=== PATIENT | female | born 1955 | race Caucasian/White ===

== ENCOUNTER 2018-11-19 14:28 | Inpatient (IN) | payer OTHER ==
[2018-11-19 14:46] VITALS: BMI 22.9
--- NOTE | 2018-11-19 14:51 | PDOC ---
Rapid Medical Evaluation Time Seen by Provider: 11/19/18 14:41 Medical Evaluation: Allergies Allergy/AdvReac Type Severity Reaction Status Date / Time No Known Allergies Allergy Verified 01/07/13 11:19 11/19/18 14:51 Pt c/o: lower abd pain x 3-4 days now with diarrhea, no fever, no GI hx Pt on brief exam: tender to periumbilical area, no distention , vss Pt ordered for: cbc, comp, lactic, ua, ucx, lipase, mag Pt to proceed to the ED Discharge Disposition - Diagnosis Abdominal pain, Hyponatremia, Hypokalemia - Discharge Dispostion Disposition: HOME - Referrals - Patient Instructions - Post Discharge Activity
[2018-11-19] MEDS ORDERED: SODIUM CHLORIDE 1,000 ML IV STA (15:14)
[2018-11-19] MEDS ORDERED: ONDANSETRON 4 MG/2 ML VIAL IVPUSH ONE (15:14)
[2018-11-19] MEDS ORDERED: FAMOTIDINE 20 MG/50 ML IVPB 20 MG/50 ML MG IVPB ONE ×2 (15:14→15:28)
[2018-11-19] MEDS ORDERED: ACETAMINOPHEN 325 MG TABLET (FP) PO ONE (15:15)
--- NOTE | 2018-11-19 15:16 | PDOC ---
History of Present Illness <Marii Singh - Last Filed: 11/19/18 19:58> - General History Source: Patient Exam Limitations: Clinical Condition - History of Present Illness Initial Comments: Jhonny Kenny is a 63 yo F w a hx of HTN, HLD and NIDDM who presents to the [facility] ER from urgent care via private auto for abdominal pain which started yesterday, has been constant, and is associated with nausea and 5 episodes of white vomiting. The patient also endorses mild nunu-umbilical abdominal pain rated 6/10 in intensity and described as sharp in character. The patient also endorses watery loose stools starting this morning. The patient has not tried taking any medications for this pain. She denies recent fevers, chills, or infections. Denies having chest pain, SOB, or difficulty breathing. Denies having a headache, neck pain, or blurry vision. Denies dysuria, frequency, or urgency. PCP: Betty Simon GI: Dr. Gamboa PSH: None reported Social Hx: Denies smoking, drinking, or other substance usage. lives at home and is independent in her ADL Allergies: NKA, NKDA <Gustabo Cummins - Last Filed: 11/19/18 22:11> - General Chief Complaint: Pain Stated Complaint: SENT BY PCP/ABD PAIN Time Seen by Provider: 11/19/18 14:41 Past History <Marii Singh - Last Filed: 11/19/18 19:58> - Past Medical History CVA: No (FAMILY HX) COPD: No Diabetes: Yes (NIDDM) HTN: Yes Hypercholesterolemia: Yes - Suicide/Smoking/Psychosocial Hx Smoking Status: No Smoking History: Never smoked Number of Cigarettes Smoked Daily: 0 <Gustabo Cummins - Last Filed: 11/19/18 22:11> - Past Medical History Allergies/Adverse Reactions: Allergies Allergy/AdvReac Type Severity Reaction Status Date / Time No Known Allergies Allergy Verified 01/07/13 11:19 Home Medications: Ambulatory Orders Amlodipine Besylate [Norvasc -] 5 mg PO DAILY #30 tablet 01/07/13 Losartan/Hydrochlorothiazide [Losartan-Hctz 50-12.5 mg Tab] 1 each PO HS #30 tablet 01/07/13 Simvastatin [Zocor] 40 mg PO HS #30 tablet 01/07/13 Review of Systems - Review of Systems Able to Perform ROS?: Yes Comments:: CONSTITUTIONAL: Absent: fever, no chills, no fatigue EYES: Absent: visual changes ENT: Absent: ear pain, no sore throat CARDIOVASCULAR: Absent: chest pain, no palpitations RESPIRATORY: Absent: cough, no SOB GI: Present: Abdominal pain, nausea, vomiting, diarrhea Absent: no constipation GENITOURINARY: Absent: dysuria, no frequency, no hematuria MUSKULOSKELETAL: Absent: back pain, no arthralgia, no myalgia SKIN: Absent: rash NEURO: Absent: headache <Gustabo Cummins - Last Filed: 11/19/18 22:11> *Physical Exam - Vital Signs Last Vital Signs Temp Pulse Resp BP Pulse Ox 98.4 F 71 20 132/74 97 11/19/18 19:28 11/19/18 19:28 11/19/18 14:43 11/19/18 19:28 11/19/18 19:28 <Marii Singh - Last Filed: 11/19/18 19:58> - Vital Signs Last Vital Signs Temp Pulse Resp BP Pulse Ox 98.5 F 67 20 137/75 98 11/19/18 14:43 11/19/18 14:43 11/19/18 14:43 11/19/18 14:43 11/19/18 14:43 - Physical Exam Comments: GENERAL: Well-appearing, well-nourished. No apparent distress. HEENT: Normocephalic, atraumatic. PERRL, EOM intact. CARDIOVASCULAR: Normal S1, S2. Regular rate and rhythm. PULMONARY: No evidence of respiratory distress. Lungs clear to auscultation bilaterally. No wheezing, rales or rhonchi. ABDOMEN: Mild nunu-umbilical/suprapubic TTP. Abdomen is soft and non-distended. No rebound or guarding. No organomegaly. Normoactive bowel sounds. EXTREMITIES: Normal ROM in all four extremities. No gross deformities. SKIN: Warm, dry. No rash NEUROLOGICAL: No focal neurological deficits. <Gustabo Cummins - Last Filed: 11/19/18 22:11> ED Treatment Course - LABORATORY CBC & Chemistry Diagram: 11/19/18 15:45 11/19/18 15:45 - ADDITIONAL ORDERS Additional order review: Laboratory Results 11/19/18 11/19/1811/19/19 15:45 15:45 15:45 PT with INR 11.80 INR 1.00 Sodium Potassium Chloride Carbon Dioxide Anion Gap BUN Creatinine Est GFR (CKD-EPI)AfAm Est GFR (CKD-EPI)NonAf Random Glucose Lactic Acid Calcium Magnesium Total Bilirubin AST ALT Alkaline Phosphatase Creatine Kinase 107 Troponin I 0.02 Total Protein Albumin Lipase Urine Color Urine Appearance Urine pH Ur Specific [place] Urine Protein Urine Glucose (UA) Urine Ketones Urine Blood Urine Nitrite Urine Bilirubin Urine Urobilinogen Ur Leukocyte Esterase Urine WBC (Auto) Urine RBC (Auto) Urine Casts (Auto) U Epithel Cells (Auto) Urine Bacteria (Auto) Blood Type O POSITIVE Antibody Screen Negative 11/19/18 11/19/18 11/19/18 15:45 15:45 15:45 PT with INR INR Sodium 119 L Potassium 2.6 L* Chloride 79 L Carbon Dioxide 29 Anion Gap 12 BUN 9.9 Creatinine 0.6 Est GFR (CKD-EPI)AfAm 114.02 Est GFR (CKD-EPI)NonAf 98.38 Random Glucose 107 H Lactic Acid 1.6 Calcium 9.6 Magnesium 1.9 Total Bilirubin 1.3 H AST 17 ALT 23 Alkaline Phosphatase 70 Creatine Kinase Troponin I Total Protein 7.0 Albumin 4.3 Lipase 158 Urine Color Yellow Urine Appearance Clear Urine pH 6.0 Ur Specific [place] 1.008 L Urine Protein Negative Urine Glucose (UA) Negative Urine Ketones 1+ H Urine Blood Trace Urine Nitrite Negative Urine Bilirubin Negative Urine Urobilinogen 0.2 Ur Leukocyte Esterase Negative Urine WBC (Auto) 0 Urine RBC (Auto) 1 Urine Casts (Auto) 0 U Epithel Cells (Auto) 0.7 Urine Bacteria (Auto) 6.4 Blood Type Antibody Screen 11/19/18 15:45 RBC 4.58 MCV 82.6 MCHC 36.6 H RDW 12.9 MPV 7.4 L Neutrophils % 67.9 Lymphocytes % 24.9 Monocytes % 5.9 Eosinophils % 0.7 Basophils % 0.6 - RADIOLOGY Radiology Studies Ordered: Category Date Time Status ABDOMEN & PELVIS CT WITH CONTR [CT] Stat CT Scan 11/19/18 15:47 Completed - Medications Given in the ED: ED Medications Discontinued Medications Generic Name Dose Route Start Last Admin Trade Name Freq PRN Reason Stop Dose Admin Acetaminophen 975 mg 11/19/18 15:15 11/19/18 16:15 Tylenol - PO 11/19/18 15:16 Not Given ONCE ONE Acetaminophen 1,000 mg 11/19/18 15:49 11/19/18 15:45 Ofirmev Injection - IVPB 11/19/18 15:50 1,000 mg ONCE ONE Administration Famotidine/Sodium Chloride 20 mg in 50 mls @ 100 mls/hr 11/19/18 15:14 15:35 Pepcid 20 Mg Premixed Ivpb - IVPB 11/19/18 15:43 100 mls/hr ONCE ONE Administration Sodium Chloride 1,000 mls @ 1,000 mls/hr 11/19/18 15:14 11/19/18 15:15 Normal Saline - IV 11/19/18 16:13 1,000 mls/hr ASDIR STA Administration Ondansetron HCl 4 mg 11/19/18 15:14 11/19/18 15:50 Zofran Injection IVPUSH 11/19/18 15:15 4 mg ONCE ONE Administration Potassium Chloride 40 meq 11/19/18 18:30 11/19/18 19:03 Potassium Chloride Oral Liquid PO 11/19/18 18:31 40 meq ONCE ONE Administration <Marii Singh - Last Filed: 11/19/18 19:58> - LABORATORY CBC & Chemistry Diagram: 11/19/18 15:45 11/19/18 15:45 - RADIOLOGY Radiograph Interpretation: CTAP: Abdomen and pelvis CT with contrast Clinical information: lower abdominal pain, nausea, emesis; evaluate for diverticulitis Multiplanar imaging was performed following the intravenous administration of nonionic contrast. As requested enteric contrast was not administered. No prior imaging studies are available at this facility for direct comparison. There is no evidence of pneumoperitoneum , abscess, free intraperitoneal fluid or bowel obstruction. Minimal to mild sigmoid diverticulosis is seen without evidence of acute diverticulitis. Evaluation of the sigmoid and descending colon is limited in regards to possible colitis due to lack of distention. No pericolonic fluid or edema is seen. The appendix appears unremarkable. No gross noncontrast small bowel pathology is noted. The parauterine veins appears somewhat dilated bilaterally. There is also mild dilatation of the ovarian veins bilaterally. These findings could be on the basis of pelvic congestion syndrome. Correlate clinically. No adnexal mass lesion or cyst is visualized. There is diffuse fatty infiltration of the liver. The spleen, pancreas, gallbladder, adrenal glands and kidneys demonstrate no discrete abnormality. There is no aortic aneurysm. No definite lymphadenopathy is identified on the basis of CT size criteria. The visualized osseous structures demonstrate no obvious CT evidence of acute pathology. Impression: Minimal to mild sigmoid diverticulosis is noted without evidence of acute diverticulitis. Evaluation of the left colon is somewhat limited due to lack of distention. Possible bilateral CT findings of pelvic congestion syndrome. Diffuse hepatic steatosis. <Gustabo Cummins - Last Filed: 11/19/18 22:11> Medical Decision Making - Medical Decision Making Jhonny Kenny is a 63 yo F w a hx of HTN, HLD and NIDDM who presents to the [facility] ER from urgent care via private auto for abdominal pain which started yesterday, has been constant, and is associated with nausea and 5 episodes of white vomiting. The patient also endorses mild nunu-umbilical abdominal pain rated 6/10 in intensity and described as sharp in character. The patient also endorses watery loose stools starting this morning. The patient has not tried taking any medications for this pain. Vital Signs Temp Pulse Resp BP Pulse Ox 98.5 F 67 20 137/75 98 11/19/18 14:43 11/19/18 14:43 11/19/18 14:43 11/19/18 14:43 11/19/18 14:43 DDx IBNLT: Gastroenteritis, gastritis, GERD, PUD, biliary colic/cholecystitis, pancreatitis, UTI/Pylo, electrolyte/,metabolic disturbance, appendicitis, colitis, referred cardiac pain. Plan: Labs, Urine, EKG, IV hydration, GI cocktail, analgesia, re-assess. CBC,CMP WBC 6.6 K/mm3 (4.0-10.0) 11/19/18 15:45 RBC 4.58 M/mm3 (3.60-5.2) 11/19/18 15:45 Hgb 13.9 GM/dL (10.7-15.3) 11/19/18 15:45 Hct 37.8 % (32.4-45.2) 11/19/18 15:45 MCV 82.6 fl (80-96) 11/19/18 15:45 MCH 30.2 pg (25.7-33.7) 11/19/18 15:45 MCHC 36.6 g/dl (32.0-36.0) H 11/19/18 15:45 RDW 12.9 % (11.6-15.6) 11/19/18 15:45 Plt Count 315 K/MM3 (134-434) 11/19/18 15:45 MPV 7.4 fl (7.5-11.1) L 11/19/18 15:45 Absolute Neuts (auto) 4.5 K/mm3 (1.5-8.0) 11/19/18 15:45 Neutrophils % 67.9 % (42.8-82.8) 11/19/18 15:45 Lymphocytes % 24.9 % (8-40) 11/19/18 15:45 Monocytes % 5.9 % (3.8-10.2) 11/19/18 15:45 Eosinophils % 0.7 % (0-4.5) 11/19/18 15:45 Basophils % 0.6 % (0-2.0) 11/19/18 15:45 Nucleated RBC % 0 % (0-0) 11/19/18 15:45 Sodium 119 mmol/L (136-145) L 11/19/18 15:45 Potassium 2.6 mmol/L (3.5-5.1) L* 11/19/18 15:45 Chloride 79 mmol/L (98-107) L 11/19/18 15:45 Carbon Dioxide 29 mmol/L (21-32) 11/19/18 15:45 Anion Gap 12 MMOL/L (8-16) 11/19/18 15:45 BUN 9.9 mg/dL (7-18) 11/19/18 15:45 Creatinine 0.6 mg/dL (0.55-1.3) 11/19/18 15:45 Est GFR (CKD-EPI)AfAm 114.02 11/19/18 15:45 Est GFR (CKD-EPI)NonAf 98.38 11/19/18 15:45 Random Glucose 107 mg/dL (74-106) H 11/19/18 15:45 Serum Osmolality 244 mosm/kg (278-305) L 11/19/18 15:45 Lactic Acid 1.6 mmol/L (0.4-2.0) 11/19/18 15:45 Calcium 9.6 mg/dL (8.5-10.1) 11/19/18 15:45 Magnesium 1.9 mg/dL (1.8-2.4) 11/19/18 15:45 Total Bilirubin 1.3 mg/dL (0.2-1) H 11/19/18 15:45 AST 17 U/L (15-37) 11/19/18 15:45 ALT 23 U/L (13-61) 11/19/18 15:45 Alkaline Phosphatase 70 U/L (45-117) 11/19/18 15:45 Creatine Kinase 107 U/L (26-192) 11/19/18 15:45 Troponin I 0.02 ng/ml (0.00-0.05) 11/19/18 15:45 Total Protein 7.0 g/dl (6.4-8.2) 11/19/18 15:45 Albumin 4.3 g/dl (3.4-5.0) 11/19/18 15:45 Lipase 158 U/L (73-393) 11/19/18 15:45 It is unclear why the patient is hyponatremic and hypokalemic. Will admit patient to the hospital for further evaluation and correction of her electrolyte abnormalities - Patient accepted to hospitalist for admission. <Gustabo Cummins - Last Filed: 11/19/18 22:11> *DC/Admit/Observation/Transfer - Discharge Dispostion Decision to Admit order: Yes <Marii Signh - Last Filed: 11/19/18 19:58> <Gustabo Cummins - Last Filed: 11/19/18 22:11> Diagnosis at time of Disposition: Abdominal pain, Hyponatremia, Hypokalemia
[2018-11-19] MEDS ORDERED: ACETAMINOPHEN 325 MG TABLET (FP) ONE (15:27)
[2018-11-19] MEDS ORDERED: ONDANSETRON 4 MG/2 ML VIAL ONE (15:27)
[2018-11-19] MEDS ORDERED: ACETAMINOPHEN 1000 MG/100 ML VIAL (NON FORMULARY) IVPB ONE (15:49)
[2018-11-19] MEDS ORDERED: ACETAMINOPHEN INJECTION 100 ML IVPB ONE (15:50)
[2018-11-19 16:00] LABS: EPI CELLS 0.7 /HPF (0-5/HPF); HYALINE CASTS 0 /lpf (0-8); URINE APPEARANCE CLEAR; URINE BACTERIA 6.4 /hpf (NEGATIVE); URINE BILIRUBIN NEGATIVE (NEGATIVE); URINE COLOR YELLOW; URINE GLUCOSE (UA) NEGATIVE (NEGATIVE); URINE KETONE 1+ (NEGATIVE); URINE LEUK ESTERASE NEGATIVE (NEGATIVE); URINE NITRITE NEGATIVE (NEGATIVE); URINE PROTEIN NEGATIVE (NEGATIVE); URINE RBC 1 /hpf (0-4); URINE UROBILINOGEN 0.2 mg/dL (0.2-1.0); URINE WBC 0 /hpf (0-5)
--- NOTE | 2018-11-19 16:03 | PDOC ---
Documentation entered by Irena Lal SCRIBE, acting as scribe for Marii Singh MD. Marii Singh MD: This documentation has been prepared by the Lukasz carvajal Lincy, SCRIBE, under my direction and personally reviewed by me in its entirety. I confirm that the documentation accurately reflects all work, treatment, procedures, and medical decision making performed by me. Attending Attestation - Resident Resident Name: Gustabo Cummins - ED Attending Attestation I have performed the following: I have examined & evaluated the patient, The case was reviewed & discussed with the resident, I agree w/resident's findings & plan, Exceptions are as noted - HPI HPI: 11/19/18 15:59 The patient is a 63 year old female with a past medical history significant for HTN (on hydrochlorothiazide), HLD, and DM (on Metformin) presents to the emergency department with abdominal discomfort, nausea, vomiting. The patient presents with 1 day history of periumbilical abdominal discomfort since yesterday. The patient reports the pain is sharp and nonradiating in quality, with a severity of 6/10. The patient reports associated symptoms of nausea with multiple episodes of nonbloody-bilious emesis (2-3 episodes today) and nonbloody -melonatic loose stool (2-3 episodes today), weakness and headache. Denies cough or recent antibiotic use. The patients abdominal surgical history includes tubal ligation. Allergies: NKDA PCP: Dr. Vonnie Simon. - Physicial Exam PE: 11/19/18 15:59 awake alert lungs clear bilat heart rrr no mrg abd soft mild bilat lower quad suprapubic ttp. no rebound no guarding. no cva tenderness. skin warm and dry. no calf tenderness. no edema. nuero alert oriented. x 3. - Medical Decision Making 11/19/18 16:00 63 yo F with h/o DM htn here from [facility] in since 04/14 here with c/o n/ v /d since yesterday. had 5 episodes of nonbloody nonbilious emesis since yesterday. loose watery stool x 3 today. no other travel. no recent abx. only surgical history is tubal ligation. on exam mild ttp on lower abd. differentail gastroenteritis, pancreatitis, appendictiis sbo diveritculitis. dka , plan for ct a/p labs iv hydration antiemetitics. 11/19/18 19:[address] a/p noted to be normal. pelvic congestion suggested. diverticulosis no diverticulitis. however labs noted for significant hypokalemia 2.6, which was repleted, and hyponatremia, likely causing pt vomiting. will repeat BMP, and admit. Heart Score/ECG Review #1 General ECG Interpretation: Sinus Rhythm, Normal Rate (70), Normal Intervals, No acute ischemic changes
[2018-11-19 16:22] LABS: PROTHROMBIN TIME (PATIENT) 11.8 SEC (9.7-13.0)
[2018-11-19 16:49] LABS: BASO % 0.6 % (0-2.0); EOS % 0.7 % (0-4.5); HEMATOCRIT 37.8 % (32.4-45.2); HEMOGLOBIN 13.9 GM/dL (10.7-15.3); LYMPH % 24.9 % (8-40); MCH 30.2 pg (25.7-33.7); MCHC 36.6 g/dl (32.0-36.0); MEAN CELL VOLUME 82.6 fl (80-96); MEAN PLT VOLUME 7.4 fl (7.5-11.1); MONO % 5.9 % (3.8-10.2); NEUT % 67.9 % (42.8-82.8); PLATELET COUNT 315 K/MM3 (134-434); RBC 4.58 M/mm3 (3.60-5.2); RDW 12.9 % (11.6-15.6); WHITE BLOOD COUNT 6.6 K/mm3 (4.0-10.0)
[2018-11-19 16:53] LABS: ALBUMIN 4.3 g/dl (3.4-5.0); BILIRUBIN,TOTAL 1.3 mg/dL (0.2-1); BLOOD UREA NITROGEN 9.9 mg/dL (7-18); CALCIUM 9.6 mg/dL (8.5-10.1); CREATININE 0.6 mg/dL (0.55-1.3); MAGNESIUM 1.9 mg/dL (1.8-2.4)
[2018-11-19 16:56] LABS: POTASSIUM 2.6 mmol/L (3.5-5.1)
[2018-11-19] MEDS ORDERED: POTASSIUM CHLORIDE ORAL LIQUID 20 MEQ/15 ML PO ONE ×2 (18:30→19:52)
[2018-11-19] MEDS ORDERED: POTASSIUM CHLORIDE TABS 20 MEQ TABLET.ER (FP) PO ONE ×3 (19:04→20:20)
[2018-11-19] MEDS ORDERED: POTASSIUM CHLORIDE ORAL LIQUID 20 MEQ/15 ML ONE (20:20)
--- NOTE | 2018-11-19 20:23 | HP ---
Admitting History and Physical - Primary Care Physician PCP: Betty Simon - Admission Chief Complaint: Abdominal Pain, Nausea, Vomiting and Diarrhea History of Present Illness: This is a 63 y/o woman with a PMHx of HTN, HLD, newly diagnosed DMT2. Who presents to the ED with diffuse abdominal pain with N/V x 5 episodes and loose stools x 1 day. Patient speaks Tagvik[place], her son who is a nurse was at bedside and provided HPI. The patient was having lower abdominal pain, N/V and loose stools, dyspepsia, VIVEROS and generalized weakness so she went to urgent care and was sent to the ED for evaluation. The son denies the patient eating any new foods, recent BBQs. The son reports the patient came here from the [facility] last March no recent travel since. Denies sick contacts. History Source: Patient, Family Member (Son) Limitations to Obtaining History: Language Barrier (Tagalog) - Past Medical History Cardiovascular: Yes: HTN, Hyperlipdemia Endocrine: Yes: Diabetes Mellitus - Smoking History Smoking history: Never smoked Aproximately how many cigarettes per day: 0 - Alcohol/Substance Use Hx Alcohol Use: No History of Substance Use: reports: None - Social History Usual Living Arrangement: Yes: With Spouse, With Child ADL: Independent History of Recent Travel: No Home Medications - Allergies Allergies/Adverse Reactions: Allergies Allergy/AdvReac Type Severity Reaction Status Date / Time No Known Allergies Allergy Verified 01/07/13 11:19 - Home Medications Home Medications: Ambulatory Orders Losartan/Hydrochlorothiazide [Losartan-Hctz 50-12.5 mg Tab] 1 each PO HS #30 tablet 01/07/13 Amlodipine Besylate [Norvasc -] 10 mg PO DAILY 11/19/18 Simvastatin [Zocor] 20 mg PO HS 11/19/18 metFORMIN HCL [Metformin HCl] 500 mg PO DAILY 11/19/18 Family Disease History - Family Disease History Family Disease History: Heart Disease: Brother (3 Brothers- Strokes) Review of Systems - Review of Systems Constitutional: reports: Loss of Appetite Eyes: reports: No Symptoms HENT: reports: No Symptoms Neck: reports: No Symptoms Cardiovascular: reports: No Symptoms Respiratory: reports: No Symptoms Gastrointestinal: reports: Abdominal Pain, Diarrhea, Nausea, Vomiting Breasts: reports: No Symptoms Reported Musculoskeletal: reports: No Symptoms Integumentary: reports: No Symptoms Neurological: reports: Headache Endocrine: reports: No Symptoms Hematology/Lymphatic: reports: No Symptoms Psychiatric: reports: No Symptoms Pain Intensity: 4 Physical Examination Vital Signs: Vital Signs Temperature 98.4 F 11/19/18 19:28 Pulse Rate 71 11/19/18 19:28 Respiratory Rate 20 11/19/18 14:43 Blood Pressure 132/74 11/19/18 19:28 O2 Sat by Pulse Oximetry (%) 97 11/19/18 19:28 Constitutional: Yes: No Distress, Calm Eyes: Yes: WNL, Conjunctiva Clear, EOM Intact, PERRL HENT: Yes: WNL, Atraumatic, Normocephalic Neck: Yes: WNL, Supple, Trachea Midline Cardiovascular: Yes: WNL, Regular Rate and Rhythm, S1, S2 Respiratory: Yes: WNL, Regular, CTA Bilaterally Gastrointestinal: Yes: Normal Bowel Sounds, Soft, Tenderness (lower abdomen), Tenderness, Epigastrium Renal/: Yes: WNL Breast(s): Yes: WNL Musculoskeletal: Yes: WNL Extremities: Yes: WNL Edema: No Peripheral Pulses WNL: Yes Integumentary: Yes: WNL Neurological: Yes: WNL, Alert, Oriented, Cran Nerves II-XII Intact ...Motor Strength: WNL Psychiatric: Yes: WNL, Alert, Oriented Labs: CBC, BMP 11/19/18 15:45 11/19/18 15:45 Intake & Output 11/17/18 11/18/18 11/19/18 11/20/18 23:59 23:59 23:59 23:59 Intake Total 1150 Balance 1150 Weight 48.081 kg Imaging - Results Chest X-ray: Pending Cat Scan: Report Reviewed, Image Reviewed Problem List - Problems (1) Hyponatremia Assessment/Plan: Likely secondary to hypovalemia due to vomiting and loose stools Na Deficit 393.7 NS bolus given in ED Will trend BMP Goal 6-8meq/24hr Seizure Precautions Monitor vitals Code(s): E87.1 - HYPO-OSMOLALITY AND HYPONATREMIA (2) Hypokalemia Assessment/Plan: See above Repleted in ED Will trend BMP EKG-pending Monitor vitals Code(s): E87.6 - HYPOKALEMIA (3) Abdominal pain Assessment/Plan: Likely viral gastroenteritis vs obstruction vs pancreatitis vs diverticulitis CTAP- neg SBO, mild sigmoid diverticulosis, no evidence of acute diverticulitis , diffuse hepatic steatosis NS bolus, Zofran given in ED Per patient's son- patient tolerated mashed potato, chicken tonight while in the ED Appreciate GI consult Clear Diet advance ad salvador Gentle IVF Monitor CBC, BMP Monitor vitals Code(s): R10.9 - UNSPECIFIED ABDOMINAL PAIN (4) Nausea & vomiting Assessment/Plan: Continue IVF Zofran prn Code(s): R11.2 - NAUSEA WITH VOMITING, UNSPECIFIED (5) HTN (hypertension) Assessment/Plan: stable Monitor BP continue home med Code(s): I10 - ESSENTIAL (PRIMARY) HYPERTENSION (6) HLD (hyperlipidemia) Assessment/Plan: stable Continue Simvastatin Monitor LFTs Code(s): E78.5 - HYPERLIPIDEMIA, UNSPECIFIED (7) Diabetes mellitus Assessment/Plan: stable BGMs ISS Hold Metformin secondary to CT with contrast Monitor renal function Code(s): E11.9 - TYPE 2 DIABETES MELLITUS WITHOUT COMPLICATIONS Assessment/Plan This is a 63 y/o woman with a PMHx of HTN, HLD, DM. Admitted for Hyponatremia, Hypokalemia ,Intractable Nausea and Vomiting, Abdominal Pain for further evaluation of their emergent condition. Plan: See Problem List FEN D5NS@42ml/hr Replete lytes prn Clear Diabetic, Low Na Diet DVT ppx OOB SCDs Heparin SQ Dispo: Requires Inpatient Care Visit type - Emergency Visit Emergency Visit: Yes ED Registration Date: 11/19/18 Care time: The patient presented to the Emergency Department on the above date and was hospitalized for further evaluation of their emergent condition. - New Patient This patient is new to me today: Yes Date on this admission: 11/19/18 - Critical Care Critical Care patient: No
[2018-11-20] MEDS ORDERED: DEXTROSE 5%-0.45% SALINE 1,000 ML IV SCH (00:45)
[2018-11-20] MEDS ORDERED: DEXTROSE 5%-NORMAL SALINE 1,000 ML IV SCH (00:45)
[2018-11-20 01:36] LABS: BLOOD UREA NITROGEN 9.7 mg/dL (7-18); CALCIUM 9.3 mg/dL (8.5-10.1); CREATININE 0.6 mg/dL (0.55-1.3)
[2018-11-20] MEDS ORDERED: ONDANSETRON 4 MG/2 ML VIAL IVPUSH PRN (06:28)
[2018-11-20 06:59] VITALS: TEMP 97
--- NOTE | 2018-11-20 08:05 | EKG ---
Test Reason : Blood Pressure : / mmHG Vent. Rate : 070 BPM Atrial Rate : 070 BPM P-R Int : 180 ms QRS Dur : 094 ms QT Int : 452 ms P-R-T Axes : 050 032 028 degrees QTc Int : 488 ms NORMAL SINUS RHYTHM NORMAL ECG WHEN COMPARED WITH ECG OF 07-JAN-2013 11:13, NO SIGNIFICANT CHANGE WAS FOUND Confirmed by NOEL SAMAYOA MD ([id number]) on 11/20/2018 8:05:14 AM Referred By: Confirmed By:NOEL SAMAYOA MD
[2018-11-20 08:15] LABS: BLOOD UREA NITROGEN 12.6 mg/dL (7-18); CREATININE 0.6 mg/dL (0.55-1.3); POTASSIUM 4.4 mmol/L (3.5-5.1)
[2018-11-20] MEDS ORDERED: FAMOTIDINE 20 MG/50 ML IVPB 20 MG/50 ML MG IVPB ONE (08:45)
[2018-11-20 09:26] LABS: EOS % 1.6 % (0-4.5); HEMATOCRIT 35.2 % (32.4-45.2); HEMOGLOBIN 12.9 GM/dL (10.7-15.3); LYMPH % 22.2 % (8-40); MCH 30.9 pg (25.7-33.7); MCHC 36.5 g/dl (32.0-36.0); MEAN CELL VOLUME 84.6 fl (80-96); MEAN PLT VOLUME 7.4 fl (7.5-11.1); MONO % 8.9 % (3.8-10.2); NEUT % 66.3 % (42.8-82.8); PLATELET COUNT 279 K/MM3 (134-434); RBC 4.16 M/mm3 (3.60-5.2); WHITE BLOOD COUNT 4.8 K/mm3 (4.0-10.0)
[2018-11-20 09:52] VITALS: BP 117/63; PULSE 62
[2018-11-20] MEDS ORDERED: LOSARTAN POTASSIUM 50 MG TABLET (FP) PO SCH (10:00)
[2018-11-20] MEDS ORDERED: amLODIPine BESYLATE 5 MG TABLET (FP) PO SCH (10:00)
[2018-11-20] MEDS ORDERED: FAMOTIDINE 20 MG/50 ML IVPB 20 MG/50 ML MG IVPB SCH (10:00)
[2018-11-20] MEDS ORDERED: ATORVASTATIN CA 10 MG TABLET (FP) PO SCH (22:00)
== END 2018-11-20 09:42 | disposition left against medical advice (07) | DRG 422 ==
LOC: JER 14:28 → JERBED 19:59
PROVIDERS: ADMIT Internal Medicine; ATTEND Internal Medicine
DX: E87.1 Hypo-osmolality and hyponatremia (principal); E86.1 Hypovolemia; K57.90 Diverticulosis of intestine, part unspecified, without perforation or abscess without bleeding; I10 Essential (primary) hypertension; E78.5 Hyperlipidemia, unspecified; E11.9 Type 2 diabetes mellitus without complications; E87.6 Hypokalemia; Z79.84 Long term (current) use of oral hypoglycemic drugs; R11.2 Nausea with vomiting, unspecified; A08.4 Viral intestinal infection, unspecified
CPT/HCPCS: 36415; 71046-TC-FY; 74177-TC; 80048; 80053; 81003; 82550; 82962; 83605; 83690; 83735; 83930; 83935; 84300; 84484; 85025; 85610; 86850; 86900; 86901; 87086; 93005; 93010; 99284-25; J0131; J7030

== ENCOUNTER 2024-04-10 05:39 | Day surgery (SDC) | payer OTHER ==
[2024-04-03 15:19] VITALS: BMI 23.6
[2024-04-10] MEDS ORDERED: SIMETHICONE 40 MG/0.6 ML BOTTLE ONE (07:16)
[2024-04-10 07:59] VITALS: TEMP 98.1
[2024-04-10 08:41] VITALS: BP 108/62; PULSE 60; RESP 15
== END 2024-04-10 09:15 | disposition home or self-care (01) ==
LOC: JASU-ENDO 05:39
PROVIDERS: ATTEND Internal Medicine Gastroenterology
PROC: 0DB78ZX Excision of Stomach, Pylorus, Via Natural or Artificial Opening Endoscopic, Diagnostic (ICD-10-PCS; 2024-04-10)
PROC: 0DB68ZX Excision of Stomach, Via Natural or Artificial Opening Endoscopic, Diagnostic (ICD-10-PCS; 2024-04-10)
PROC: 0DB28ZX Excision of Middle Esophagus, Via Natural or Artificial Opening Endoscopic, Diagnostic (ICD-10-PCS; 2024-04-10)
PROC: 0DB38ZX Excision of Lower Esophagus, Via Natural or Artificial Opening Endoscopic, Diagnostic (ICD-10-PCS; principal; 2024-04-10 07:30)
DX: K29.50 Unspecified chronic gastritis without bleeding (principal)
CPT/HCPCS: 88305-TC; 88342-TC

== ENCOUNTER 2024-07-15 16:09 | Emergency (ER) | payer OTHER ==
[2024-07-15 16:20] VITALS: RESP 18; BMI 25.3
[2024-07-15 19:10] LABS: BASO % 0.6 % (0-2.0); EOS % 1.4 % (0-4.5); HEMATOCRIT 43.2 % (32.4-45.2); HEMOGLOBIN 15.1 GM/dL (10.7-15.3); LYMPH % 22.8 % (8-40); MCH 30.3 pg (25.7-33.7); MEAN CELL VOLUME 86.4 fl (80-96); MEAN PLT VOLUME 6.7 fl (7.5-11.1); MONO % 4.7 % (3.8-10.2); NEUT % 70.5 % (42.8-82.8); PLATELET COUNT 298 10^3/uL (134-434); RDW 13.4 % (11.6-15.6); WHITE BLOOD COUNT 6.3 K/mm3 (4.0-10.0)
[2024-07-15 19:38] LABS: POTASSIUM 4.2 mmol/L (3.5-5.1)
[2024-07-15 19:40] LABS: ALBUMIN 4.4 g/dl (3.4-5.0); CALCIUM 9.8 mg/dL (8.5-10.1)
[2024-07-15 19:43] LABS: CREATININE 0.7 mg/dL (0.55-1.3)
[2024-07-15 19:45] LABS: BILIRUBIN,TOTAL 0.8 mg/dL (0.2-1); TOT PROT 7.3 g/dl (6.4-8.2)
[2024-07-15] MEDS ORDERED: ACETAMINOPHEN 325 MG TABLET (FP) ONE (19:51)
[2024-07-15] MEDS: ACETAMINOPHEN 500 MG TABLET (FP) PO ONE (19:54)
[2024-07-15 22:03] VITALS: BP 122/76; PULSE 80; TEMP 98.6
== END 2024-07-15 22:07 | disposition home or self-care (01) ==
LOC: JER 16:09
DX: K64.9 Unspecified hemorrhoids (principal); K62.5 Hemorrhage of anus and rectum; R10.30 Lower abdominal pain, unspecified
CPT/HCPCS: 36415; 74177-TC; 80053; 82272; 85025; 99285-25

== ENCOUNTER 2025-01-01 06:28 | Day surgery (SDC) | payer OTHER ==
[2024-12-29 12:22] VITALS: BMI 25.1
[2025-01-01] MEDS ORDERED: LIDOCAINE HCL 2% JELLY 11 ML TP ONE (10:14)
[2025-01-01] MEDS ORDERED: KETOROLAC TROMETHAMINE 30 MG/1 ML VIAL ONE (10:18)
[2025-01-01 10:20] VITALS: TEMP 97.4
[2025-01-01 10:49] VITALS: RESP 20
[2025-01-01 11:21] VITALS: BP 123/65; PULSE 72
== END 2025-01-01 11:31 | disposition home or self-care (01) ==
LOC: JASU-ENDO 06:28
PROVIDERS: ATTEND Internal Medicine Gastroenterology
PROC: 0DBL8ZX Excision of Transverse Colon, Via Natural or Artificial Opening Endoscopic, Diagnostic (ICD-10-PCS; 2025-01-01)
PROC: 06LY8CC Occlusion of Hemorrhoidal Plexus with Extraluminal Device, Via Natural or Artificial Opening Endoscopic (ICD-10-PCS; principal; 2025-01-01 09:00)
DX: K64.8 Other hemorrhoids (principal); D12.3 Benign neoplasm of transverse colon
CPT/HCPCS: 88305-TC